=== PATIENT | male | born 1985 | race African-American/Black ===

== ENCOUNTER 2017-12-18 22:21 | Emergency (ER) | payer OTHER ==
[~2017-12-18] VITALS: Ht 170.2 cm; Wt 65.8 kg
[~2017-12-18 22:21] MED LIST: FLEXERIL PO; IBUPROFEN 600600 M1 PO; NAPROSYN500 MG PO; NOHOMEMEDICATIONS; NORCO 5-325 TA1 EACH PO
[2017-12-19] MEDS ORDERED: NAPROSYN500 MG PO (00:12)
[2017-12-19 00:25] VITALS: BP 114/72
== END 2017-12-19 00:28 | disposition home or self-care (01) ==
LOC: ER 22:21
DX: S86.911A Strain of unspecified muscle(s) and tendon(s) at lower leg level, right leg, initial encounter (principal); J45.909 Unspecified asthma, uncomplicated; F17.210 Nicotine dependence, cigarettes, uncomplicated; X58.XXXA Exposure to other specified factors, initial encounter; Y93.89 Activity, other specified; Y92.89 Other specified places as the place of occurrence of the external cause; Y99.8 Other external cause status

== ENCOUNTER 2018-10-06 17:08 | Emergency (ER) | payer OTHER ==
[~2018-10-06] VITALS: Ht 170.2 cm; Wt 65.8 kg
[2018-10-06 17:22] VITALS: BP 110/64
[2018-10-06] MEDS ORDERED: CYCLOBENZAPRINE5 MG PO (18:32)
[2018-10-06] MEDS ORDERED: MOBIC7.5 MG PO (18:32)
== END 2018-10-06 18:54 | disposition home or self-care (01) ==
LOC: ER 17:08
DX: M54.5 Low back pain (principal); M25.552 Pain in left hip; J45.909 Unspecified asthma, uncomplicated; F17.210 Nicotine dependence, cigarettes, uncomplicated; V49.49XA Driver injured in collision with other motor vehicles in traffic accident, initial encounter; Y93.89 Activity, other specified; Y92.89 Other specified places as the place of occurrence of the external cause; Y99.8 Other external cause status